=== PATIENT | female | born 1950 | race Caucasian/White ===

== ENCOUNTER 2016-10-22 10:50 | Outpatient (CLI) | payer MEDICARE, OTHER | END 2016-10-22 10:51 | disposition home or self-care (01) | DX: S22.31XA Fracture of one rib, right side, initial encounter for closed fracture (principal); R07.81 Pleurodynia; R91.8 Other nonspecific abnormal finding of lung field ==

== ENCOUNTER 2016-10-23 09:46 | Outpatient (CLI) | payer MEDICARE, OTHER | END 2016-10-23 09:47 | disposition home or self-care (01) | DX: R91.8 Other nonspecific abnormal finding of lung field (principal); M81.0 Age-related osteoporosis without current pathological fracture ==

== ENCOUNTER 2016-10-29 10:14 | Outpatient (CLI) | payer MEDICARE, OTHER ==
[2016-10-29] MEDS ORDERED: IOPAMIDOL-300 100 ML VIAL IVP ONE (10:44)
== END 2016-10-29 10:15 | disposition home or self-care (01) ==
DX: R91.8 Other nonspecific abnormal finding of lung field (principal)
CPT/HCPCS: 71260; Q9967

== ENCOUNTER 2016-12-14 23:18 | Outpatient (CLI) | payer MEDICARE, OTHER | END 2016-12-14 23:19 | disposition short-term general hospital (02) | DX: R40.4 Transient alteration of awareness (principal); R52 Pain, unspecified | CPT/HCPCS: A0170; A0425; A0427 ==